=== PATIENT | male | born 1960 | race African-American/Black ===

== ENCOUNTER 2019-07-04 20:22 | Inpatient (IN) | payer MEDICAID, OTHER ==
[~2019-07-04] VITALS: Ht 167.6 cm; Wt 71.3 kg
[2019-07-04 21:22] LABS: BASOPHILS % (AUTO) 0.6 % (0.0-2.0); EOSINOPHILS % (AUTO) 3.5 % (1.0-6.0); HEMATOCRIT 40.4 % (41-53); HEMOGLOBIN 12.6 g/dL (13.5-17.5); LYMPHOCYTES % (AUTO) 24.2 % (22.0-44.0); MEAN CORPUSCULAR HEMOGLOBIN 25.1 pg (26.0-34.0); MEAN CORPUSCULAR HGB CONC 31.3 G/dL (31.0-37.0); MEAN CORPUSCULAR VOLUME 80 fL (80-100); MONOCYTES # (AUTO) 0.9 K/uL (0.1-1.0); MONOCYTES % (AUTO) 10.5 % (2.0-9.0); NEUTROPHILS % (AUTO) 61.2 % (40.0-70.0); PLATELET COUNT (AUTO) 458 K/uL (150-450); RED BLOOD CELL COUNT(AUTO) 5.03 MIL/uL (4.50-5.90); RED CELL DISTRIBUTION WIDTH 14.4 % (11.5-14.5)
[2019-07-04 22:00] LABS: ANION GAP 7 mmol/L (8-16); CALCIUM, TOTAL 9.1 mg/dL (8.8-10.5); CARBON DIOXIDE 31 mmol/L (22-29); CHLORIDE 103 mmol/L (98-107); GLOMERULAR FILTR. RATE CALC > 60 mL/min (>60); GLUCOSE,RANDOM 104 mg/dL (70-110); POTASSIUM 3.9 mmol/L (3.5-5.1); SODIUM SERUM 141 mmol/L (136-145); UREA NITROGEN, BLOOD 15 mg/dL (7-18)
[2019-07-04 22:16] LABS: ALANINE AMINOTRANSFERASE 21 U/L (12-78); ALBUMIN 3.7 g/dL (3.4-5.0); ALKALINE PHOSPHATASE 132 U/L (46-116); ASPARTATE AMINOTRANSFERASE 14 U/L (15-37); BILIRUBIN,TOTAL 0.4 mg/dL (0.1-1.0); TOTAL PROTEIN, SERUM 7.6 g/dL (6.4-8.2)
[2019-07-05] MEDS ORDERED: ZOLPIDEM TARTRATE 10 MG TABLET PO PRN (05:15)
[2019-07-05 06:19] LABS: AMPHET/METH SCREEN,URINE NEGATIVE (NEGATIVE); BARBITURATE SCREEN, URINE NEGATIVE (NEGATIVE); BENZODIAZEPINES SCREEN,URINE NEGATIVE (NEGATIVE); CANNABINOID SCREEN,URINE NEGATIVE (NEGATIVE); COCAINE SCREEN,URINE NEGATIVE (NEGATIVE); METHADONE SCREEN, URINE NEGATIVE (NEGATIVE); OPIATE SCREEN,URINE NEGATIVE (NEGATIVE); PHENCYCLIDINE SCREEN,URINE NEGATIVE (NEGATIVE)
[2019-07-05 09:39] VITALS: BP 121/65
[2019-07-05] MEDS ORDERED: LORazepam 2 MG/ML VIAL IM ONE (09:45)
[2019-07-05] MEDS ORDERED: DiphenhydrAMINE HCL 50 MG/ML VIAL IM ONE (09:45)
[2019-07-05] MEDS ORDERED: HALOPERIDOL LACTATE 5 MG/ML VIAL IM ONE (09:45)
[2019-07-05] MEDS ORDERED: PETROLATUM,WHITE 28 GM JELLY TP PRN (12:45)
[2019-07-05] MEDS ORDERED: MAGNESIUM HYDROXIDE SUSPENSION 30 ML UDCUP PO PRN (12:45)
[2019-07-05] MEDS ORDERED: ACETAMINOPHEN 325 MG TABLET PO PRN (12:45)
[2019-07-05] MEDS ORDERED: NICOTINE 14 MG/24 HOUR PATCH TD PRN (12:45)
[2019-07-05] MEDS ORDERED: LOPERAMIDE HCL 2 MG CAPSULE PO PRN (12:45)
[2019-07-05] MEDS ORDERED: CloNIDine HCL 0.1 MG TABLET PO PRN (12:45)
[2019-07-05] MEDS ORDERED: MAG HYDROX/AL HYDROX/SIMETH ES 30 ML SUSPENSION UDCUP PO PRN (12:45)
[2019-07-05] MEDS ORDERED: ONDANSETRON HCL 4 MG TABLET PO PRN (12:45)
[2019-07-05] MEDS ORDERED: DOCUSATE SODIUM 100 MG CAPSULE PO PRN (12:45)
[2019-07-05] MEDS ORDERED: GuaiFENesin/D-METHORPHAN [SUGAR-FREE] 200-20MG/10 ML SYRUP UDCUP PO PRN (12:45)
[2019-07-05] MEDS ORDERED: IBUPROFEN 400 MG TABLET PO PRN (12:45)
[2019-07-05] MEDS ORDERED: ALBUTEROL SULFATE HFA 90 MCG/PUFF 8 GM INHALER IH PRN (12:45)
[2019-07-05 16:00] VITALS: BP 111/77
[2019-07-05] MEDS: LITHIUM CARBONATE 300 MG CAPSULE PO SCH (17:08)
[2019-07-05] MEDS: BACITRACIN 28.4 GM OINTMENT TP SCH (17:09)
[2019-07-05] MEDS: LORazepam 2 MG TABLET PO PRN (17:10)
[2019-07-05] MEDS: HALOPERIDOL 5 MG TABLET PO PRN (17:10)
[2019-07-05] MEDS: QUEtiapine FUMARATE 200 MG TABLET PO SCH (20:05)
[2019-07-06 07:55] LABS: CHOL/HDL RATIO 3.2 (4.2-7.3)
[2019-07-06 08:12] VITALS: BP 134/99
[2019-07-06] MEDS: LITHIUM CARBONATE 300 MG CAPSULE PO SCH ×2 (08:27→16:28)
[2019-07-06] MEDS: LORazepam 2 MG TABLET PO PRN ×2 (08:27→16:28)
[2019-07-06] MEDS: BACITRACIN 28.4 GM OINTMENT TP SCH ×2 (08:28→16:28)
[2019-07-06] MEDS ORDERED: AmLODIPine BESYLATE 5 MG TABLET PO SCH (15:15)
[2019-07-06 16:12] VITALS: BP 142/101
[2019-07-06 17:14] VITALS: BP 120/80
[2019-07-06] MEDS: BENZTROPINE MESYLATE 1 MG TABLET PO SCH (20:58)
[2019-07-06] MEDS: QUEtiapine FUMARATE 200 MG TABLET PO SCH (20:58)
[2019-07-07 06:15] VITALS: BP 140/100
[2019-07-07 07:16] VITALS: BP 144/90
[2019-07-07 08:34] VITALS: BP 127/87
[2019-07-07] MEDS: BACITRACIN 28.4 GM OINTMENT TP SCH ×2 (08:42→16:03)
[2019-07-07] MEDS: AmLODIPine BESYLATE 2.5 MG TABLET PO SCH (08:42)
[2019-07-07] MEDS: LITHIUM CARBONATE 300 MG CAPSULE PO SCH ×2 (08:42→16:03)
[2019-07-07 16:14] VITALS: BP 143/96
[2019-07-07] MEDS: BENZTROPINE MESYLATE 1 MG TABLET PO SCH (20:36)
[2019-07-07] MEDS: QUEtiapine FUMARATE 200 MG TABLET PO SCH (20:36)
[2019-07-08 06:24] VITALS: BP 123/83
[2019-07-08] MEDS: LITHIUM CARBONATE 300 MG CAPSULE PO SCH ×2 (08:26→16:37)
[2019-07-08] MEDS: BACITRACIN 28.4 GM OINTMENT TP SCH ×2 (08:26→16:36)
[2019-07-08] MEDS: AmLODIPine BESYLATE 2.5 MG TABLET PO SCH (08:26)
[2019-07-08 08:48] VITALS: BP 125/88
[2019-07-08] MEDS: LORazepam 2 MG TABLET PO PRN ×2 (10:30→16:37)
[2019-07-08] MEDS: HALOPERIDOL 5 MG TABLET PO PRN (10:30)
[2019-07-08 16:07] VITALS: BP 137/79
[2019-07-08] MEDS: QUEtiapine FUMARATE 300 MG TABLET PO SCH (20:09)
[2019-07-08] MEDS: BENZTROPINE MESYLATE 1 MG TABLET PO SCH (20:09)
[2019-07-09 08:03] VITALS: BP 117/95
[2019-07-09] MEDS: LITHIUM CARBONATE 300 MG CAPSULE PO SCH ×2 (08:36→16:24)
[2019-07-09] MEDS: AmLODIPine BESYLATE 2.5 MG TABLET PO SCH (08:36)
[2019-07-09] MEDS ORDERED: ZOLPIDEM TARTRATE 10 MG TABLET PO PRN (08:45)
[2019-07-09] MEDS ORDERED: HALOPERIDOL 5 MG TABLET PO PRN (09:15)
[2019-07-09] MEDS ORDERED: LORazepam 2 MG TABLET PO PRN (09:15)
[2019-07-09] MEDS ORDERED: BACITRACIN 28.4 GM OINTMENT TP PRN (10:45)
[2019-07-09 16:35] VITALS: BP 130/86
[2019-07-09] MEDS: QUEtiapine FUMARATE 300 MG TABLET PO SCH (20:29)
[2019-07-09] MEDS: BENZTROPINE MESYLATE 1 MG TABLET PO SCH (20:29)
[2019-07-10 06:20] VITALS: BP 122/78
[2019-07-10] MEDS: AmLODIPine BESYLATE 2.5 MG TABLET PO SCH (08:19)
[2019-07-10] MEDS: LITHIUM CARBONATE 300 MG CAPSULE PO SCH ×2 (08:19→16:16)
[2019-07-10 16:00] VITALS: BP 138/89
[2019-07-10] MEDS: BENZTROPINE MESYLATE 1 MG TABLET PO SCH (20:03)
[2019-07-10] MEDS: QUEtiapine FUMARATE 300 MG TABLET PO SCH (20:03)
[2019-07-11 06:16] VITALS: BP 128/83
[2019-07-11] MEDS ORDERED: QUET300T2 PO (07:58)
[2019-07-11] MEDS ORDERED: BENZ1TAB10 PO (07:58)
[2019-07-11] MEDS ORDERED: LITH300CRT PO (07:58)
[2019-07-11] MEDS ORDERED: AMLO2.5T4 PO (07:58)
[2019-07-11 08:00] VITALS: BP 140/80
[2019-07-11] MEDS: LITHIUM CARBONATE 300 MG CAPSULE PO SCH (08:05)
[2019-07-11] MEDS: AmLODIPine BESYLATE 2.5 MG TABLET PO SCH (08:05)
== END 2019-07-11 11:10 | disposition home or self-care (01) | DRG 750 ==
LOC: EMS 20:25 → B3A 07-05 06:30
DX: F25.0 Schizoaffective disorder, bipolar type (principal); R45.850 Homicidal ideations; R45.851 Suicidal ideations; D64.9 Anemia, unspecified; G44.209 Tension-type headache, unspecified, not intractable; F17.210 Nicotine dependence, cigarettes, uncomplicated; F19.10 Other psychoactive substance abuse, uncomplicated; R03.0 Elevated blood-pressure reading, without diagnosis of hypertension; Z59.0 Homelessness; Z91.5 Personal history of self-harm; Z71.51 Drug abuse counseling and surveillance of drug abuser; Z88.0 Allergy status to penicillin
CPT/HCPCS: 96372; G0480; J1200; J1630; J2060